=== PATIENT | male | born 1970 | race Caucasian/White ===

== ENCOUNTER → 2017-06-28 11:09 | Outpatient (REF) | payer BC, SELFPAY ==
[2017-06-28 13:59] LABS: Basophils # 0.1 K/mm3 (0-0.2); Basophils % 0.4 % (0.1-2.0); Eosinophils # 0.2 K/mm3 (0.0-0.4); Eosinophils % 1.8 % (0.1-12.0); Hematocrit 45.9 % (42.0-52.0); Hemoglobin 15.3 g/dL (14.1-18.0); Lymphocytes # 2.3 K/mm3 (0.7-4.5); Lymphocytes % 16.9 K/mm3 (10-50); Mean Corpuscular HGB Conc 33.3 g/dL (31.8-35.4); Mean Corpuscular Hemoglobin 30.4 pg (27.0-31.2); Mean Corpuscular Volume 91.1 fl (80-94); Monocytes # 0.5 K/mm3 (0.1-1.0); Monocytes % 3.5 % (1.7-9.3); Neutrophils # 10.6 K/mm3 (1.8-7.8); Neutrophils % 77.5 % (37.0-80.0); Platelet Count 369 K/mm3 (142-424); Red Blood Count 5.04 M/mm3 (4.60-6.20); Red Cell Distribution Width 13.4 % (11.5-17.5); White Blood Count 13.7 K/mm3 (4.8-10.8)
[2017-06-28 14:18] LABS: Alanine Aminotransferase 22 U/L (12-78); Albumin/Globulin Ratio 0.8 (1.1-1.8); Alkaline Phosphatase 92 U/L (46-116); Aspartate Amino Transferase 15 U/L (15-37); Bilirubin,Total 0.3 mg/dL (0.2-1.0); Blood Urea Nitrogen 10 mg/dL (7-18); Carbon Dioxide 24 mmol/L (21.0-32.0); Chloride 105 mmol/L (98-107); Creatinine,Serum 0.83 mg/dL (0.70-1.30); Estimated Glomerular Filt Rate 100 ml/min (>60); GFR (African American) 121 ML/MIN (>60); Glucose 96 mg/dL (74-106); Lipase 145 u/L (73-393); Sodium 140 mmol/L (136-145)
[2017-06-30 08:49] LABS: Vitamin B12 381 pg/mL (232-1245)
== END ==
LOC: LAB 11:09
PROVIDERS: Visit Provider Emergency Medicine
DX: R53.83 Other fatigue (principal); K59.9 Functional intestinal disorder, unspecified; R19.7 Diarrhea, unspecified
CPT/HCPCS: 80053; 82607; 83690; 85025

== ENCOUNTER 2017-06-28 23:18 | Emergency (ER) | payer OTHER, BC, SELFPAY ==
[2017-06-28 23:33] VITALS: BP 134/81; PULSE 108; RESP 18; TEMP 36.6; O2SAT 98; BMI 20.7
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
--- NOTE | 2017-06-28 23:51 | ED_ITS ---
ED Disposition Clinical Impression: SBO (small bowel obstruction) Acute lumbar myofascial strain Qualifiers: Encounter type: initial encounter Qualified Code(s): S39.012A - Strain of muscle, fascia and tendon of lower back, initial encounter Concussion Qualifiers: Encounter type: initial encounter Loss of consciousness presence/duration: without LOC Qualified Code(s): S06.0X0A - Concussion without loss of consciousness, initial encounter Acute cervical myofascial strain Qualifiers: Encounter type: initial encounter Qualified Code(s): S16.1XXA - Strain of muscle, fascia and tendon at neck level, initial encounter Disposition: Home, Self-Care Condition on Discharge: Good Instructions: DI for Small Bowel Obstruction Additional Instructions: fluids and call pcp for follow up Referrals: Mark Munoz MD [Primary Care Provider] - - Critical Care Critical Care Time: No Attestation: On , the high probability of a clinically significant, sudden or life threatening deterioration of the following system(s) required my full and direct attention, intervention and personal management. The time I documented below is in addition to time spent performing reported procedures but includes the following listed in this critical care notation. Medical Decision Making - Medical Records Medical records reviewed: Yes: I reviewed the patient's medical records. Vital Signs: 06/28/17 23:33 06/29/17 01:05 Temperature 97.9 F Temperature Source Oral Pulse Rate [Right Radial] 108 H 86 Respiratory Rate 18 24 Blood Pressure [Right Arm] 134/81 119/80 Blood Pressure Mean [Right Arm] 98 93 Blood Pressure Source [Right Arm] Automatic Cuff Automatic Cuff Blood Pressure Position [Right Arm] Sitting Supine 02 Sat by Pulse Oximetry 98 97 Oxygen Delivery Method Room Air Room Air - Lab Data Lab results reviewed: Yes: I reviewed the patient's lab results. Orders (Tests/Meds): ED MEDICATIONS Discontinued Medications Generic Name Dose Route Start Last Admin Trade Name Freq PRN Reason Stop Dose Admin Butorphanol Tartrate 1 mg 06/29/17 01:27 06/29/17 01:35 Stadol 1mg/1ml Vial IV 06/29/17 01:28 1 mg ONCE ONE Administration Iopamidol 75 ml 06/29/17 01:22 06/29/17 01:23 [id number]; 75ml Vial IV 06/29/17 01:23 75 ml ONCE ONE Administration Promethazine HCl 12.5 mg 06/29/17 01:28 06/29/17 01:35 Phenergan 25mg/Ml 1ml Vial IV 06/29/17 01:29 12.5 mg ONCE ONE Administration Sodium Chloride 10 ml 06/29/17 01:22 06/29/17 01:23 Rad-Saline Flush 10ml Syringe IV 06/29/17 01:23 10 ml ONCE ONE Administration Sodium Chloride 25 ml 06/29/17 01:28 Sod Chloride 0.9% 25ml Bag IV 06/29/17 01:29 ONCE ONE ORDERS Category Date Time Status CT abdomen pelvis w con Stat Cat Scan 06/28/17 23:[address] cervical spine wo con Stat Cat Scan 06/28/17 23:[address] head/brain wo con Stat Cat Scan 06/28/17 23:[address] lumbar spine wo con Stat Cat Scan 06/28/17 23:48 Taken XR chest AP Stat Exams 06/29/17 00:47 Taken XR pelvis 1-2V Stat Exams 06/29/17 00:47 Taken - Radiology Data #1 Image(s): Chest, Pelvis Image Reviewed: Yes I reviewed the patient's radiology image Prelimina
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
[2017-06-29 01:05] VITALS: BP 119/80; PULSE 86; RESP 24; O2SAT 97
[2017-06-29 16:21] LABS: Adenovirus F 40/41, stool Not Detected (NotDetected); Astrovirus Not Detected (NotDetected); Campylobacter Not Detected (NotDetected); Clostridium Difficile A/B, PCR Not Detected (NotDetected); Cryptosporidium Not Detected (NotDetected); Cyclospora Cayetanesis Not Detected (NotDetected); Entamoeba histolytica Not Detected (NotDetected); Enteroaggregative E coli Not Detected (NotDetected); Enteropathogenic E coli Not Detected (NotDetected); Enterotoxigenic E coli Not Detected (NotDetected); Giardia lamblia Not Detected (NotDetected); Norovirus Not Detected (NotDetected); Plesimonas Shigalloides, PCR Not Detected (NotDetected); Rotavirus A Not Detected (NotDetected); Salmonella, PCR Not Detected (NotDetected); Sapovirus Not Detected (NotDetected); Shiga-like toxin E coli Not Detected (NotDetected); Shigella Enterovasive E coli Not Detected (NotDetected); Vibrio Cholerae Not Detected (NotDetected); Vibrio, PCR Not Detected (NotDetected); Yersinia Entercolitica, PCR Not Detected (NotDetected)
--- NOTE | 2017-07-04 16:30 | PC.NURSE ---
Pt arrived needing work excuse. Deny, admissions, stated that she called back the ED and DR. Munoz said he could be off 2 days. work note documented and printed for patient.
== END 2017-06-29 02:31 | disposition home or self-care (01) ==
PROVIDERS: Emergency Provider Emergency Medicine; Family Provider Emergency Medicine; PCP Emergency Medicine
DX: K56.609 Unspecified intestinal obstruction, unspecified as to partial versus complete obstruction (principal); S39.012A Strain of muscle, fascia and tendon of lower back, initial encounter; S06.0X0A Concussion without loss of consciousness, initial encounter; S16.1XXA Strain of muscle, fascia and tendon at neck level, initial encounter; V43.52XA Car driver injured in collision with other type car in traffic accident, initial encounter; Y92.410 Unspecified street and highway as the place of occurrence of the external cause; Z79.82 Long term (current) use of aspirin; F17.210 Nicotine dependence, cigarettes, uncomplicated; F12.10 Cannabis abuse, uncomplicated; Z88.5 Allergy status to narcotic agent
CPT/HCPCS: 70450; 71045; 72125; 72131; 72170; 74177; 87507; 96374; 96375; 99283; J0595; Q9967

== ENCOUNTER → 2017-07-12 10:30 | Outpatient (CLI) | payer BC, SELFPAY ==
--- NOTE | 2017-07-12 10:34 | FL_ITS ---
FL upper GI small bowel HISTORY: Abdominal pain, prior colon surgery with bloating and distention. ITS.REASON: Diarrhea ORDERING PHYSICIAN: Mark Munoz MD PATIENT AGE: 47 years COMPARISON: CT scan of 06/29/2017 FINDINGS: The Guest Relations Manager exam shows distended loops of small bowel in the midabdomen which measure up to 8 cm in diameter. A suture line is present in the right lower quadrant. The esophagus, stomach, and duodenum are unremarkable. No ulcer or mass evident. No obvious hernia. There are moderately distended loops of small bowel in the mid mid ileum. The patient was not able to keep an adequate amount of contrast down with limited bowel opacification. Patient did vomit during the course exam and was unable to drink any more contrast with limited bowel opacification.. Nonetheless, on the 1 hour 25 minutes image moderately distended jejunal loops are opacified. There is tapering of the jejunum in the left lower quadrant. Contrast does move past this region. The bowel loops do not aggressively contract. Contrast did make it to the large bowel x 2 h. IMPRESSION: 1. Distended loops of small bowel in the mid jejunum with transition point in the left lower quadrant consistent with partial small bowel obstruction. Part of the distention could be due to atonic segments in the right lower quadrant. 2. Unremarkable stomach and duodenum
== END ==
PROVIDERS: Family Provider Emergency Medicine; PCP Emergency Medicine; Visit Provider Emergency Medicine
DX: R19.7 Diarrhea, unspecified (principal); K59.9 Functional intestinal disorder, unspecified
CPT/HCPCS: 74245